=== PATIENT | female | born 1975 | race Caucasian/White ===

== ENCOUNTER 2017-02-13 16:22 | Outpatient (CLI) | payer OTHER ==
[~2017-02-13] VITALS: Ht 165.1 cm; Wt 75.9 kg
[~2017-02-13 16:22] MED LIST: AMOX-291 PO; ONDA4TAB7 PO; OXYC5TAB3 PO; RANI75TA12 PO; none per pt
[2017-02-13 16:35] VITALS: BP 117/72
[2017-02-13] MEDS ORDERED: TERBUTALINE 1 MG/ML, 1ML ONE (18:29)
[2017-02-13] MEDS ORDERED: TERBUTALINE 1 MG/ML, 1ML SQ ONE (18:30)
== END 2017-02-13 20:02 | disposition home or self-care (01) ==
LOC: LDOP 16:22
PROVIDERS: ATTEND Obstetrics & Gynecology
DX: O09.522 Supervision of elderly multigravida, second trimester (principal); O26.892 Other specified pregnancy related conditions, second trimester; R10.30 Lower abdominal pain, unspecified; O21.9 Vomiting of pregnancy, unspecified; O62.9 Abnormality of forces of labor, unspecified; Z3A.27 27 weeks gestation of pregnancy
CPT/HCPCS: 36415; 59025; 81001; 82731; 87086; 96372; 99211; J3105; G0463